=== PATIENT | male | born 1950 | race Caucasian/White ===

== ENCOUNTER → 2017-06-02 | Day surgery (SDC) | payer MEDICAID ==
[~2017-06-02] MED LIST: ATEN50TA PO; CHLORHEXIDINE GLUCONATE 2 % 1 PACK (2 CLOTHS) TOPICAL PRN; HYDR25TA5 PO; INSULIN HUMAN REGULAR 1,000 UNITS/10 ML VIAL SQ PRN; KETO2CRE TOPICAL; LACTATED RINGER'S 1000 ML IV PRN; LEVO50TA4 PO; METOPROLOL TARTRATE 25 MG TAB PO PRN; NORC5TAB PO; OMEP40CA2 PO; PERC5TAB12 PO; POVIDONE IODINE 5% (ANTISEPSIS KIT) 4 APPLICATIONS EACH NARE PRN; PROP20TA3 PO; SODIUM CHLORID 0.9% 500 ML IV PRN; ceFAZolin 1,000 MG/NS 100 ML IV SCH
[2017-06-02 07:02] LABS: BASOPHIL # 0.1 TH/MM3 (0-0.2); BASOPHIL % 0.8 % (0.0-2.0); EOSINOPHIL # 0.2 TH/MM3 (0-0.4); EOSINOPHIL % 1.6 % (0.0-4.0); HEMATOCRIT 43.2 % (39.0-51.0); HEMO FLAGS DIFF FINAL; LYMPH % 28.5 % (9.0-44.0); LYMPHOCYTE # 2.7 TH/MM3 (1.0-4.8); MEAN CELL VOLUME 90.3 FL (80.0-100.0); MEAN CORPUSCULAR HEMOGLOBIN 30.7 PG (27.0-34.0); MONO % 6.4 % (0.0-8.0); NEUT % 62.7 % (16.0-70.0); PLATELET COUNT 203 TH/MM3 (150-450); RED BLOOD COUNT 4.78 MIL/MM3 (4.50-5.90); WHITE BLOOD COUNT 9.6 TH/MM3 (4.0-11.0)
[2017-06-02 07:25] VITALS: BP 141/87; PULSE 62; RESP 18; TEMP 98.8; O2SAT 95
--- NOTE | 2017-06-02 07:54 | RADRPT ---
EXAM DATE/TIME: 06/02/2017 07:37 [facility] COMPARISON: No previous studies available for comparison. INDICATIONS : Preop abdomen for cysto, evaluate for kidney stones MEDICAL HISTORY : Renal calculi. SURGICAL HISTORY : None. ENCOUNTER: Initial ACUITY: 1 day PAIN SCORE: Non-responsive. LOCATION: Bilateral abdomen FINDINGS: Supine view of the abdomen was performed. The abdominal bowel gas pattern is normal. 2 left-sided ca lcifications are seen one measuring 7 mm over the left mid kidney the other just medial to left kidne y measuring 6 mm. Presumed phlebolith in the pelvis measuring 3-4 mm. No abnormal masses or organomeg christiano is seen. The osseous structures are unremarkable. CONCLUSION: 1. One left sided renal calculi measures 7 mm. 2. There is a 6 mm calcification just medial to left kidney could be in the renal pelvis or other jerri ign calcification. Go Jimenez MD on June 02, 2017 at 7:51 Board Certified Radiologist. This report was verified electronically.
--- NOTE | 2017-06-02 12:39 | EKG ---
Date Performed: 06/02/2017 Time Performed: 07:25:31 PTAGE: 67 years EKG: ELECTRONIC VENTRICULAR PACEMAKER ABNORMAL RHYTHM ECG Compared to PREVIOUS TRACING ventricular pacemaker is now present PREVIOUS TRACIN10/08/2007 13.21 DOCTOR: Adan Mcmahon Interpretating Date/Time 06/02/2017 12:34:43
== END | disposition home or self-care (01) ==
LOC: HSDC 05:55
PROVIDERS: ATTEND Urology
DX: Z53.09 Procedure and treatment not carried out because of other contraindication (principal); R94.31 Abnormal electrocardiogram [ECG] [EKG]
CPT/HCPCS: 74000; 82365; 82370; 85025; 88300; 93005; 99211; J7120; G0463

== ENCOUNTER → 2017-06-04 | Day surgery (SDC) | payer MEDICAID ==
[~2017-06-04] VITALS: Ht 160 cm; Wt 75.0 kg
[~2017-06-04] MED LIST changes: +*MEPERIDINE 25 MG INJ VIAL PERIprocedural Use ONLY ONE; +ACETAMINOPHEN/HYDROcodone 325 MG/5 MG TAB ONE; -ATEN50TA PO; +BUPIVACAINE HCL PF 0.5% 30 ML VIAL ONE; +LIDOCAINE HCL 2% 50 ML VIAL ONE; +MORPHINE SULFATE 8 MG/ML INJ ONE; +NEOMYCIN/POLYMYXIN 1 ML G.U. IRRIGANT ONE; +ONDANSETRON HCL 4 MG/2 ML VIAL IV PUSH ONE; +ONDANSETRON HCL 4 MG/2 ML VIAL ONE; +PHENYLEPH/NS 1000 MCG/10 ML SYR IV ONE; +PROPOFOL 200 MG/20 ML AMP IV ONE; -ceFAZolin 1,000 MG/NS 100 ML IV SCH
[2017-06-04] MEDS: ceFAZolin 1,000 MG/NS 100 ML IV SCH ×4 (09:35→10:40)
[2017-06-04 10:37] VITALS: PULSE 65
--- NOTE | 2017-06-04 11:03 | MP ---
cc: DHAVAL STEWART III, M.D. DATE OF OPERATION 06/04/2017 PREOPERATIVE DIAGNOSIS Left fifth metacarpal fracture. POSTOPERATIVE DIAGNOSIS 1. Left fifth metacarpal fracture. 2. Left hamate dorsal avulsion fracture. PROCEDURE 1. Closed reduction with manipulation and pinning left fifth metacarpal 2. Use of image intensifier. SURGEON Dhaval Stewart III, MD PROCEDURE The patient was brought to the operating room and placed supine on the operating room table. After the correct site and side of the surgery were verified by members of each team in the room multiple times including the patient and myself and after adequate preoperative markings and preoperative written consent were verified by everyone and after adequate preoperative time-out was performed to everyone's satisfaction, after adequate general anesthesia had been achieved, the left upper extremity was prepped and draped in the traditional sterile surgical fashion. A 50/50 mixture of 2% plain lidocaine and 0.5% plain Marcaine was infiltrated in the skin and subcutaneous tissue in the area of the fifth metacarpal fracture. Manipulation under anesthesia was then performed and an avulsion fracture of the dorsal aspect of the hamate was identified. It was minimally displaced and not changed at all since the x-rays were reviewed in the office several days ago and is not anything that this amenable or requiring repair. Thorough manipulation of the fracture fragment, then was able to achieve a near-anatomic reduction and two separate 0.045-cm K-wires were advanced in retrograde fashion at different angles. They were tailored to length, cut, bent, Jurgan's balls were applied. Final x-rays were obtained. There was no mal-angulation or malrotation on passive range of motion examination. The tourniquet was never used. Capillary refill was less than 2 seconds in all fingertips. The hand and arm were thoroughly cleansed and dried. Additional local anesthetic for postoperative pain control was injected. Betadine and Xeroform was applied around the base of the pins, followed by a bulky well-padded, well-molded whole hand immobilizing splint. The patient was awakened from anesthesia and transported to the Post-Anesthesia Care Unit awake and in stable condition at the end of the case. Sponge, needle and instrument counts were correct at the end of the case as reported by the nurses in the room. MD TIM Carias III /10:41 AM /10:52 AM
[2017-06-04 11:30] VITALS: PULSE 60; TEMP 97.4
[2017-06-04 12:25] VITALS: BP 91/69; PULSE 61; RESP 16; O2SAT 96
== END | disposition home or self-care (01) ==
LOC: PHSDC 07:00
PROVIDERS: ATTEND Orthopaedic Surgery Hand Surgery
DX: S62.337A Displaced fracture of neck of fifth metacarpal bone, left hand, initial encounter for closed fracture (principal); E03.9 Hypothyroidism, unspecified; G47.30 Sleep apnea, unspecified; I49.9 Cardiac arrhythmia, unspecified; R73.03 Prediabetes; Z95.0 Presence of cardiac pacemaker; W01.0XXA Fall on same level from slipping, tripping and stumbling without subsequent striking against object, initial encounter
CPT/HCPCS: 01820; 26607; 76000; J0690; J2175; J2270; J2370; J2405; J3010; J7120

== ENCOUNTER → 2017-09-03 | Day surgery (SDC) | payer MEDICAID ==
[~2017-09-03] VITALS: Ht 157.5 cm; Wt 74.3 kg
[~2017-09-03] MED LIST changes: -*MEPERIDINE 25 MG INJ VIAL PERIprocedural Use ONLY ONE; -ACETAMINOPHEN/HYDROcodone 325 MG/5 MG TAB ONE; +ASPI-516 CHEW; -BUPIVACAINE HCL PF 0.5% 30 ML VIAL ONE; +DEXAMETHASONE SOD PHOS 4 MG/ML VIAL IV ONE; +DILA2TAB4 PO; +DO NOT ADM ANY ANTICOAGULANT DRUGS PRN; +FURO80TA PO; +HYDROmorphone HCL 2 MG TAB PO PRN; +HYDROmorphone HCL PF 2 MG/ML VIAL ONE; -INSULIN HUMAN REGULAR 1,000 UNITS/10 ML VIAL SQ PRN; +LIDOCAINE HCL 1% PF 5 ML SYRINGE OTHER ONE; -LIDOCAINE HCL 2% 50 ML VIAL ONE; -MORPHINE SULFATE 8 MG/ML INJ ONE; -NEOMYCIN/POLYMYXIN 1 ML G.U. IRRIGANT ONE; -NORC5TAB PO; +ONDANSETRON HCL 4 MG/2 ML VIAL IV ONE; -ONDANSETRON HCL 4 MG/2 ML VIAL IV PUSH ONE; +ONDANSETRON HCL 4 MG/2 ML VIAL IV PUSH PRN; -ONDANSETRON HCL 4 MG/2 ML VIAL ONE; +PILL SPLITTER OTHER PRN
--- NOTE | 2017-09-03 10:26 | RADRPT ---
EXAM DATE/TIME: 09/03/2017 09:08 [facility] COMPARISON: ABDOMEN KUB ONLY, June 02, 2017, 7:37. INDICATIONS : Pre op lithotripisy. MEDICAL HISTORY : Hypothyroidism. Renal calculi. Arthritis. Cardiac arrhythmia. Sleep apnea. SURGICAL HISTORY : Pacemaker. Left hand. ENCOUNTER: Initial ACUITY: 1 day PAIN SCORE: 0/10 LOCATION: Abdomen. FINDINGS: Supine view of the abdomen was performed. The abdominal bowel gas pattern is normal. Redemonstration of stable calcified densities measuring 7 mm projecting over the mid left kidney and measuring 6 mm left renal pelvis. Redemonstration of small calcified densities in the pelvis consistent with phlebol iths. No new calcified densities. The osseous structures are unremarkable. CONCLUSION: 1. Stable 7 mm calcified calculus in the left mid renal pole and probable 6 mm calcified calculus ove rlying the left renal pelvis. Heriberto Blair MD on September 03, 2017 at 10:21 Board Certified Radiologist. This report was verified electronically.
[2017-09-03 10:31] LABS: AUTOMATED NEUTROPHIL # 5.1 TH/MM3 (1.8-7.7); BASOPHIL # 0.1 TH/MM3 (0-0.2); BASOPHIL % 0.7 % (0.0-2.0); EOSINOPHIL # 0.2 TH/MM3 (0-0.4); EOSINOPHIL % 2.2 % (0.0-4.0); HEMATOCRIT 44.1 % (39.0-51.0); LYMPH % 27.7 % (9.0-44.0); LYMPHOCYTE # 2.3 TH/MM3 (1.0-4.8); MEAN PLATELET VOLUME 10.6 FL (7.0-11.0); MONO % 7.2 % (0.0-8.0); MONOCYTE # 0.6 TH/MM3 (0-0.9); NEUT % 62.2 % (16.0-70.0); PLATELET COUNT 186 TH/MM3 (150-450); RED BLOOD COUNT 4.85 MIL/MM3 (4.50-5.90); RED CELL DISTRIBUTION WIDTH 13.4 % (11.6-17.2); WHITE BLOOD COUNT 8.1 TH/MM3 (4.0-11.0)
--- NOTE | 2017-09-03 11:21 | PD.OP ---
Operative Report Date of Surgery: Sep 03, 2017 Preoperative Diagnosis: (1) Renal calculus, left Postoperative Diagnosis: (1) Renal calculus, left Procedure: ESWL left renal calculus Anesthesia: General Surgeon: Rajeev Hernandez Residential Team Leader(s): None Operation and Findings: Indication for procedure: Case of a pleasant 67-year-old gentleman with 2 left renal calculi who presents today to undergo extrapleural shockwave lithotripsy of these calculi. Operative procedure in detail: Patient was brought to the operating suite and placed supine on the lithotripsy table. He was then placed under general anesthesia. After appropriate timeout was undertaken, I proceeded with localization of one of the left renal calculi in the more medial location. The patient subsequently received extrapleural shockwave lithotripsy utilizing the Dornier mobile lithotripsy device. The patient received a total of 3000 shocks the stone with a maximum power level setting of 6. After receiving the shocks, the stone appeared somewhat spread out consistent with at least partial fragmentation. Since all of the energy was utilized the stone the more lateral stone was not treated today. The patient tolerated the procedure without complications and was transferred to the PACU in satisfactory condition. Rajeev Hernandez MD Sep 03, 2017 11:21
[2017-09-03 12:25] VITALS: BP 162/95; PULSE 60; RESP 20; TEMP 97; O2SAT 97
== END | disposition home or self-care (01) ==
LOC: HSDC 08:03
PROVIDERS: ATTEND Urology
DX: N20.0 Calculus of kidney (principal); E03.9 Hypothyroidism, unspecified; G47.30 Sleep apnea, unspecified; Z95.0 Presence of cardiac pacemaker
CPT/HCPCS: 00873; 50590; 74018; 85025; J1100; J2370; J2405; J7120; J1170

== ENCOUNTER → 2017-10-22 | Day surgery (SDC) | payer MEDICAID ==
[~2017-10-22] VITALS: Ht 162.6 cm; Wt 73.0 kg
[~2017-10-22] MED LIST changes: +*morphine SULFATE 10 MG/ML PERIprocedure ONLY ONE; -ASPI-516 CHEW; -FURO80TA PO; -HYDROmorphone HCL 2 MG TAB PO PRN; -HYDROmorphone HCL PF 2 MG/ML VIAL ONE; +MIDAZOLAM HCL 2 MG/2 ML VIAL ONE; -PILL SPLITTER OTHER PRN; +TRIA.1%T TOPICAL; +ePHEDrine/NS 25 MG/5 ML SYRINGE IV ONE; +oxyCODONE/ACETAMINOPHEN 5 MG/325 MG TAB PO PRN
--- NOTE | 2017-10-22 09:02 | RADRPT ---
EXAM DATE/TIME: 10/22/2017 08:25 [facility] COMPARISON: ABDOMEN KUB ONLY, June 02, 2017, 7:37. ABDOMEN KUB ONLY, September 03, 2017, 9:08. INDICATIONS : Pre-op ESWL. Patient states he has some pain in his bladder. MEDICAL HISTORY : Hypothyroidism. Renal calculi. Arthritis. Cardiac arrhythmia. Sleep apnea. SURGICAL HISTORY : Pacemaker. ENCOUNTER: Initial ACUITY: 1 day PAIN SCORE: 2/10 LOCATION: Left Bladder/kidney. FINDINGS: Single supine frontal view of the abdomen demonstrates left ureteral stent in place. There is a densi ty overlying the left lower pole kidney measuring 8 x 5 mm and a density projecting over the medial l eft upper pole kidney measuring 6 x 3 mm. No definite abnormal density is visualized along the left u reteral stent. There is a stable phlebolith in the left pelvis. No right renal stones are identified. There is a nonobstructive bowel gas pattern. No organomegaly is present. CONCLUSION: There are 2 densities overlying the left kidney with the largest at the lower pole measuring 8 mm. Dalton Oleary MD on October 22, 2017 at 8:59 Board Certified Radiologist. This report was verified electronically.
[2017-10-22 09:09] LABS: AUTOMATED NEUTROPHIL # 5.1 TH/MM3 (1.8-7.7); BASOPHIL % 0.6 % (0.0-2.0); EOSINOPHIL # 0.1 TH/MM3 (0-0.4); EOSINOPHIL % 1.7 % (0.0-4.0); HEMATOCRIT 46.4 % (39.0-51.0); HEMOGLOBIN 15.6 GM/DL (13.0-17.0); LYMPH % 26.6 % (9.0-44.0); LYMPHOCYTE # 2.1 TH/MM3 (1.0-4.8); MEAN CELL VOLUME 90.2 FL (80.0-100.0); MEAN CORPUSCULAR HEMOGLOBIN 30.3 PG (27.0-34.0); MEAN CORPUSCULAR HGB CONC 33.6 % (32.0-36.0); MEAN PLATELET VOLUME 9.7 FL (7.0-11.0); MONO % 5.8 % (0.0-8.0); MONOCYTE # 0.5 TH/MM3 (0-0.9); NEUT % 65.3 % (16.0-70.0); PLATELET COUNT 215 TH/MM3 (150-450); RED BLOOD COUNT 5.15 MIL/MM3 (4.50-5.90); RED CELL DISTRIBUTION WIDTH 13.4 % (11.6-17.2); WHITE BLOOD COUNT 7.8 TH/MM3 (4.0-11.0)
--- NOTE | 2017-10-22 10:56 | PD.OP ---
Operative Report Date of Surgery: Oct 22, 2017 Preoperative Diagnosis: (1) Renal calculus, left Postoperative Diagnosis: (1) Renal calculus, left Procedure: Extracorporeal shockwave lithotripsy left renal calculus Anesthesia: General Surgeon: Rajeev Hernandez Packing Room Supervisor(s): None Operation and Findings: Indication for procedure: Case of a pleasant 67-year-old gentleman with a left renal calculus who presents today to undergo shockwave lithotripsy. Operative procedure in detail: Patient was brought to the operating room suite and placed supine on the lithotripsy table. He was then placed under general anesthesia. After appropriate timeout was undertaken I proceeded with localization of the patient's left renal calculus. The patient subsequently received extracorporeal shockwave lithotripsy utilizing the Mak Piezolith device. The patient received a total of 2500 shocks with a maximum power level setting of 20. At conclusion of the procedure the stone was spread out considerably consistent with excellent fragmentation. The patient was separately transferred to the PACU in satisfactory condition having tolerated the procedure well. Rajeev Hernandez MD Oct 22, 2017 10:56
[2017-10-22 12:50] VITALS: BP 152/86; PULSE 69; RESP 20; TEMP 97.9; O2SAT 96
== END | disposition home or self-care (01) ==
LOC: HSDC 07:55
PROVIDERS: ATTEND Urology
DX: N20.0 Calculus of kidney (principal); N20.2 Calculus of kidney with calculus of ureter; Z01.818 Encounter for other preprocedural examination; E11.9 Type 2 diabetes mellitus without complications; I49.9 Cardiac arrhythmia, unspecified; G47.30 Sleep apnea, unspecified; F41.9 Anxiety disorder, unspecified
CPT/HCPCS: 00872; 50590; 74018; 85025; J1100; J2250; J2270; J2370; J2405; J3010; J7120

== ENCOUNTER → 2017-11-14 | Day surgery (SDC) | payer MEDICAID ==
[~2017-11-14] VITALS: Ht 160 cm; Wt 73.0 kg
[~2017-11-14] MED LIST changes: -*morphine SULFATE 10 MG/ML PERIprocedure ONLY ONE; +*morphine SULFATE 4 MG/ML PERIprocedure ONLY ONE; +CEPH-459 PO; -DILA2TAB4 PO; +INSULIN HUMAN REGULAR 1,000 UNITS/10 ML VIAL SQ PRN; +IOHEXOL 350 MG/ML 100 ML BTL (for RAD DIAG) OTHER ONE; -KETO2CRE TOPICAL; -MIDAZOLAM HCL 2 MG/2 ML VIAL ONE; +SODIUM CHLORIDE 0.9% INJ 100 ML ONE; +TRAM50TA PO; +ceFAZolin 1,000 MG/NS 100 ML IV SCH; +ceFAZolin INJ 1,000 MG VIAL ONE; -oxyCODONE/ACETAMINOPHEN 5 MG/325 MG TAB PO PRN; +traMADol HCL 50 MG TAB PO PRN
[2017-11-14 10:09] LABS: AUTOMATED NEUTROPHIL # 8.2 TH/MM3 (1.8-7.7); BASOPHIL % 0.4 % (0.0-2.0); EOSINOPHIL # 0.1 TH/MM3 (0-0.4); EOSINOPHIL % 0.5 % (0.0-4.0); HEMATOCRIT 46.9 % (39.0-51.0); HEMOGLOBIN 15.7 GM/DL (13.0-17.0); LYMPH % 16.1 % (9.0-44.0); LYMPHOCYTE # 1.7 TH/MM3 (1.0-4.8); MEAN CELL VOLUME 89.7 FL (80.0-100.0); MEAN CORPUSCULAR HGB CONC 33.4 % (32.0-36.0); MEAN PLATELET VOLUME 9.8 FL (7.0-11.0); MONO % 6.4 % (0.0-8.0); MONOCYTE # 0.7 TH/MM3 (0-0.9); NEUT % 76.6 % (16.0-70.0); PLATELET COUNT 225 TH/MM3 (150-450); RED BLOOD COUNT 5.23 MIL/MM3 (4.50-5.90); RED CELL DISTRIBUTION WIDTH 13.4 % (11.6-17.2); WHITE BLOOD COUNT 10.7 TH/MM3 (4.0-11.0)
--- NOTE | 2017-11-14 11:49 | PD.OP ---
Operative Report Date of Surgery: Nov 14, 2017 Preoperative Diagnosis: (1) Retained ureteral stent Postoperative Diagnosis: (1) Retained ureteral stent Procedure: Cystoscopy, removal of retained left ureteral stent, left retrograde pyelogram and placement of left ureteral catheter. Anesthesia: General Surgeon: Rajeev Hernandez Ict Sales Assistant(s): None Operation and Findings: Indication for procedures: Case of a pleasant 67-year-old gentleman with history left ureteral calculi who status post left ureteral stent insertion and left-sided shockwave lithotripsy. Patient presented to my office yesterday to have his left stent removed however a significant amount of resistance was met and the stent could not be removed. Patient presents now for removal of the left stent under general anesthesia. Operative procedures in detail: Patient was brought to the operating room suite and placed supine on the cystoscopy table. He was then placed under general anesthesia. He was then repositioned in the dorsolithotomy position and prepped and draped in normal sterile fashion. After appropriate timeout was undertaken I proceeded with cystoscopic evaluation utilizing the rigid cystoscope with the 30 lens and 20 E[place]an sheath. The urethra was patent without stricture formation and the prostatic urethra was not obstructing. Further passage of the cystoscope demonstrated the majority of the left stent to be within urinary bladder and the distal and was grasped and brought out to the meatus. Once again by pulling on the stent the significant amount of resistance was met in the stent would not easily release. I advanced a sensor 0.035 wire alongside the stent and up the left ureter for stabilization. I then was able to gently manipulate the stent free. The stent was carefully inspected to ascertain that no residual stent fragments were left behind. I then advanced a X Eritrean open-ended ureteral catheter up to the left renal pelvis and the wire was withdrawn. A left retrograde Polygram study was performed to outline the collecting system. The cystoscope was then withdrawn and a 16 E[place]an 10 cc Amaro catheter placed. The left open-ended ureteral catheter was anchored to the Amaro via a connector both catheters placed to gravity drainage. The patient tolerated the procedures without complications and was transferred to the PACU in satisfactory condition. Rajeev Hernandez MD Nov 14, 2017 11:49
[2017-11-14 13:25] VITALS: BP 177/99; PULSE 68; RESP 16; TEMP 97; O2SAT 98
== END | disposition home or self-care (01) ==
LOC: HSDC 09:12
PROVIDERS: ATTEND Urology
DX: Z46.6 Encounter for fitting and adjustment of urinary device (principal); Z87.442 Personal history of urinary calculi
CPT/HCPCS: 00910; 52310; 74420; 85025; C1769; J0690; J1100; J2270; J2370; J2405; J3010; J7120; Q9967